=== PATIENT | female | born 1970 | race Caucasian/White ===

== ENCOUNTER 2025-05-01 11:48 | Emergency (ER) | payer OTHER, SELFPAY ==
[2025-05-01 12:06] VITALS: BP 138/80; PULSE 79; RESP 16; TEMP 37.1; O2SAT 100; BMI 24.1
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
[2025-05-01] MEDS: ACETAMINOPHEN 325 MG TABLET 975 MG PO (12:50)
[2025-05-01] MEDS: LIDOCAINE 5% PATCH 1 EACH TOP (12:50)
[2025-05-01 14:17] VITALS: BP 129/75; PULSE 61; RESP 18; TEMP 36.8; O2SAT 99
== END 2025-05-01 14:20 | disposition home or self-care (01) ==
PROVIDERS: Emergency Provider Physician Assistant; PCP Family Medicine
DX: S56.911A Strain of unspecified muscles, fascia and tendons at forearm level, right arm, initial encounter (principal); M19.011 Primary osteoarthritis, right shoulder; V89.2XXA Person injured in unspecified motor-vehicle accident, traffic, initial encounter
CPT/HCPCS: 73030; 99283; 99284